=== PATIENT | female | born 1955 | race Caucasian/White ===

== ENCOUNTER 2017-09-28 12:59 | Outpatient (RCR) | payer OTHER | END 2017-10-01 | LOC: OT 12:59 | PROVIDERS: ATTEND Surgery Surgery of the Hand | DX: S52.532D Colles' fracture of left radius, subsequent encounter for closed fracture with routine healing (principal); M25.532 Pain in left wrist; M25.632 Stiffness of left wrist, not elsewhere classified | CPT/HCPCS: 97110; 97165; L3906 ==

== ENCOUNTER 2017-10-26 12:00 | Outpatient (RCR) | payer OTHER ==
[~2017-10-26 12:00] MED LIST: BUPIVACAINE HCL 0.5% INJ 30 ML VIAL INJ ONE
== END 2017-11-01 ==
LOC: OT 12:00
PROVIDERS: ATTEND Surgery Surgery of the Hand
DX: S52.532D Colles' fracture of left radius, subsequent encounter for closed fracture with routine healing (principal); S52.612D Displaced fracture of left ulna styloid process, subsequent encounter for closed fracture with routine healing; M25.532 Pain in left wrist; M25.632 Stiffness of left wrist, not elsewhere classified
CPT/HCPCS: 97022 ×8; 97110 ×8; L3806

== ENCOUNTER 2017-11-06 11:00 | Outpatient (RCR) | payer OTHER | END 2017-11-29 | LOC: OT 11:00 | PROVIDERS: ATTEND Surgery Surgery of the Hand | DX: S52.532D Colles' fracture of left radius, subsequent encounter for closed fracture with routine healing (principal); S52.612D Displaced fracture of left ulna styloid process, subsequent encounter for closed fracture with routine healing ==